=== PATIENT | female | born 1970 | race Caucasian/White ===

== ENCOUNTER 2016-08-31 21:26 | Emergency (ER) | payer OTHER ==
--- NOTE | 2016-08-31 23:38 | ED CLINICAL REPORT ---
Clinical Report - Physicians/Mid Levels [facility] [address] [place] [address] 08/31/2016 21:29 [id number] Time Seen: 21:56; initial patient contact. Arrived- By private vehicle. Historian- patient. HISTORY OF PRESENT ILLNESS Chief Complaint: Injury to right and left leg and Chief Complaint- Edema. The injury happened about 1 week ago. Occurred at home. Injury secondary to other mechansim (none). Patient is not experiencing pain. Patient denies injury to the head or neck. REVIEW OF SYSTEMS The patient has had swelling. No tingling, weakness, numbness, calf pain or chest pain. No difficulty breathing. She has had pedal edema but no pain on weight bearing. All systems otherwise negative, except as recorded above. PAST HISTORY ( Hypertension. Heart Murmur. ADDITIONAL SURGERIES: Abdominal surgery). Medications: Bactrim Oral. Allergies: None. SOCIAL HISTORY Never smoker. No alcohol use or drug use. ADDITIONAL NOTES The nursing notes have been reviewed. PHYSICAL EXAM Vital Signs: 08/31/2016 21:50 BP: 153/85. HR: 102. RR: 20. O2 saturation: 96%. Temp: 98.4 F. Pain level now: 0/10. Have been reviewed. Hypertensive. Tachycardic. Respiratory rate normal. Temperature normal. Oxygen saturation normal. Appearance: Alert. Oriented X3. ENT: Pharynx normal. Neck: Normal inspection. CVS: Normal heart rate and rhythm. Heart sounds normal. Respiratory: No respiratory distress. Breath sounds normal. Skin: Skin warm and dry. Normal skin color. Extremities: Right leg: mild swelling. No erythema or tenderness. Left leg: mild swelling. No erythema or tenderness. Extremities otherwise negative. Gait: Normal gait. Neuro, Vascular and Tendons: Vascular status intact. Sensation intact. Motor intact. Tendon function intact. Neuro: Oriented X 3. LABS, X-RAYS, AND EKG Chest X-ray: No acute disease. Normal lung markings present. Normal heart size. No infiltrate. Views: AP. Technique: good. The X-rays were independently viewed by me and interpreted contemporaneously by me. Prior films were not available for comparison. PROGRESS AND PROCEDURES Disposition: Discharged home in good and improved condition. Condition: good. CLINICAL IMPRESSION Bilateral pedal edema secondary to unknown cause. Uncontrolled essential hypertension. INSTRUCTIONS Follow a low salt diet. Your Current Medications: CONTINUE TAKING THE FOLLOWING MEDICATIONS: Bactrim Oral. Prescription Medications: Spironolactone 25 mg: take 1 tablet orally every 12 hours. Dispense thirty (30). No refills. Follow-up: Follow up with your doctor in about three days. Call for an appointment. Screening today revealed the patient's blood pressure to be in the hypertensive range. The patient should follow up with a primary care provider for blood pressure management. (Electronically signed by Deacon Walters Dr. 09/01/2016 5:29)
--- NOTE | 2016-08-31 23:38 | ED ORDER SUMMARY ---
..... Patient: JUANITA CARR OrderSheet [facility] VisitID: [id number] [place] [address] 45y, F Registration Date/Time: 08/31/2016 ORDER SHEET Weight: 181.4 kg (stated) Allergies: None GENERAL ORDERS: Chest 1V Urgent (22:08/31/2016 Pilar Najera) (Ack 22:40 CHagerty ER Electrophonic Engineer) (23:57 RMarsden R.N.) CBC w Diff Urgent (22:08/31/2016 Pilar Najera) (Ack 22:40 Madelineerty ER Electrophonic Engineer) (Collected 22:47 RMarsden R.N.) (23:30 CFalkner R.N.) CMP Urgent (:08/31/2016 Pilar Najera) (Ack 22:40 Madelineerty ER Electrophonic Engineer) (Collected 22:47 RMarsden R.N.) (23:30 CFalkner R.N.) UA-Culture if indicated Urgent (22:08/31/2016 Pilar Najera) (Ack 22:40 Carlos Alberto ER Electrophonic Engineer) (Cancelled: Other23:57 RMarsden R.N.) BNP Urgent (:08/31/2016 Pilar Najera) (Ack 22:40 Madelineerty ER Electrophonic Engineer) (Collected 22:47 RMarsden R.N.) (23:30 CFalkner R.N.) D-Dimer Urgent (22:08/31/2016 Pilar Najera) (Ack 22:40 Madelineerty ER Electrophonic Engineer) (Collected 22:47 RMarsden R.N.) (23:30 CFalkner R.N.) Urine Urgent (:08/31/2016 Pilar Najera) (Ack 22:40 Carlos Alberto ER Electrophonic Engineer) (Cancelled: Other23:57 RMarsden R.N.) MEDICATION ORDERS: IV FLUIDS: IV Saline Lock (22:08/31/2016 Pilar Najera) (22:47 RMarsden R.N.) ORDER SHEET NOTES: [Electronically signed by Lin Thomas R.N. (09/01/2016)] [Electronically signed by Deacon Walters Dr. (05:29 09/01/2016)] [Electronically locked/signed by Lin Thomas R.N. (09/01/2016)]
--- NOTE | 2016-08-31 23:38 | ED ORDER SUMMARY ---
..... Patient: JUANITA CARR OrderSheet [facility] VisitID: [id number] [place] [address] 45y, F Registration Date/Time: 08/31/2016 ORDER SHEET Weight: 181.4 kg (stated) Allergies: None GENERAL ORDERS: Chest 1V Urgent (22:08/31/2016 Pilar Najera) (Ack 22:40 CHagerty ER Chair Finisher) (23:57 RMarsden R.N.) CBC w Diff Urgent (22:08/31/2016 Pilar Najera) (Ack 22:40 Madelineerty ER Chair Finisher) (Collected 22:47 RMarsden R.N.) (23:30 CFalkner R.N.) CMP Urgent (:08/31/2016 Pilar Najera) (Ack 22:40 Madelineerty ER Chair Finisher) (Collected 22:47 RMarsden R.N.) (23:30 CFalkner R.N.) UA-Culture if indicated Urgent (22:08/31/2016 Pilar Najera) (Ack 22:40 Carlos Alberto ER Chair Finisher) (Cancelled: Other23:57 RMarsden R.N.) BNP Urgent (:08/31/2016 Pilar Najera) (Ack 22:40 Madelineerty ER Chair Finisher) (Collected 22:47 RMarsden R.N.) (23:30 CFalkner R.N.) D-Dimer Urgent (22:08/31/2016 Pilar Najera) (Ack 22:40 Madelineerty ER Chair Finisher) (Collected 22:47 RMarsden R.N.) (23:30 CFalkner R.N.) Urine Urgent (:08/31/2016 Pilar Najera) (Ack 22:40 Carlos Alberto ER Chair Finisher) (Cancelled: Other23:57 RMarsden R.N.) MEDICATION ORDERS: IV FLUIDS: IV Saline Lock (22:08/31/2016 Pilar Najera) (22:47 RMarsden R.N.) ORDER SHEET NOTES: [Electronically signed by Lin Thomas R.N. (09/01/2016)] [Electronically signed by Deacon Walters Dr. (05:29 09/01/2016)] [Electronically locked/signed by Lin Thomas R.N. (09/01/2016)]
--- NOTE | 2016-08-31 23:38 | ED NURSING NOTES ---
Clinical Report - [facility] [address] [place] [address] 08/31/2016 21:29 Patient: JUANITA CARR TRIAGE Triage time 21:50. Acuity: LEVEL 4. Chief Complaint: ("water retention"). 22:00 08/31/16. Alert. No acute distress. RIDDHI COMA SCORE: Riddhi Coma Scale: 15- eyes open spontaneously (4); best verbal response- oriented x 4 (5); best motor response- obeys commands (6). --22:00 Lin Thomas R.N. 21:50 08/31/16. BP: 153/85 taken on the left arm, while sitting. HR: 102. RR: 20. O2 saturation: 96%. Temp: 98.4 F. Pain level now: 0/10. Additional comments: patient states she has no pain, just "discomfort." . --22:00 Lin Thomas R.N. Weight: 181.4 kg stated. Height/Length: 67 inches Per Patient. BMI: 62.7. --21:54 Lin Thomas R.N. Medications Bactrim Oral. --21:53 Lin Thomas R.N. Allergies None. --21:53 Lin Thomas R.N. History Arrived by private vehicle. Historian: patient. Primary physician (Tay [place]). Onset. (a week ago). ( Patient states "I noticed my legs were swelling a week ago. I think I'm diabetic. I tried taking otc water pills but they didnt help."). ( tinnitus). 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 PAST MEDICAL HX: Immunizations: up-to-date. Denies current . SOCIAL HX: Never smoker. No alcohol use or drug use. FALL RISK ASSESSMENT: Fall risk assessment completed. No fall risk identified. NUTRITIONAL RISK ASSESSMENT: The nutritional risk assessment revealed no deficiencies. FUNCTIONAL ASSESSMENT: Functional assessment: no impairments noted. LEARNING NEEDS ASSESSMENT: The learning needs assessment revealed no barriers. SKIN INTEGRITY ASSESSMENT: Skin integrity risk assessment completed. No skin integrity risk identified. --22:00 Lin Thomas R.N. PROBLEMS: Hypertension. Heart Murmur. --21:54 Lin Thomas R.N. ADDITIONAL SURGERIES: Abdominal surgery. --21:54 Lin Thomas R.N. Interventions ID band on patient. To treatment room. --22:00 Lin Thomas R.N. PHYSICAL ASSESSMENT 22:02 08/31/16. Ambulatory to room. GENERAL / NEURO / PSYCH: Alert. Oriented X 4. Appears in no acute distress. HEENT: Mucous membranes are pink. RESPIRATORY: Respirations not labored. Breath sounds within normal limits. CVS: Capillary refill less than 2 seconds. Pulses within normal limits. GI / : Abdomen soft and nontender and normal bowel sounds. SKIN: Skin is warm and dry. Swelling with tenderness, heat and erythema to right leg, right ankle, right foot, left leg, left ankle and left foot. ( +2 edema, both legs.). --22:02 Lin Thomas R.N. NURSING PROGRESS NOTES 22:03 08/31/16. Pulse oximeter and NIBP monitor placed on patient. Head of bed elevated. Two patient identifiers checked. Call light placed in reach. Side rails up x 1. Bed placed in lowest position. Brakes of bed on. Patient ready for evaluation- chart flagged and notification provided. --22:03 Lin Thomas R.N. 22:42 08/31/2016 Site #1 started via IV in the right antecubital space with an 20g angiocath; one attempt. Blood drawn: rainbow set. Labeled in the presence of the patient and sent to the lab. Saline lock flushed with 10 mL saline. --22:47 Lin Thomas R.N. 22:48 08/31/16. BP: 140/85 taken on the left arm, while sitting. HR: 104. RR: 20. O2 saturation: 96%. Temp: deferred. Pain level now: 0/10. --22:48 Lin Thomas R.N. DISPOSITION / DISCHARGE No learning barriers present. Discharge instructions provided and reviewed with the patient. Reviewed medication(s). Treatments reviewed. Reviewed referrals. Patient verbalized understanding. Written instructions provided in Dominican. The patient was discharged home and accompanied by family. She left the Emergency Department ambulatory and via private vehicle. Family member driving. --23:55 Lin Thomas R.N. 23:53 08/31/16. BP: 137/94 taken on the left arm, while sitting. HR: 90. RR: 18. O2 saturation: 97% on room air. Temp: deferred. Pain level now: 0/10. --23:55 Lin Thomas R.N. Locked/Released at 09/01/2016 1:07 by Lin Thomas R.N.
--- NOTE | 2016-08-31 23:38 | ED NURSING NOTES ---
Clinical Report - Nurses [facility] [address] [place] [address] 08/31/2016 21:29 Patient: JUANITA CARR TRIAGE Triage time 21:50. Acuity: LEVEL 4. Chief Complaint: ("water retention"). 22:00 08/31/16. Alert. No acute distress. RIDDHI COMA SCORE: Riddhi Coma Scale: 15- eyes open spontaneously (4); best verbal response- oriented x 4 (5); best motor response- obeys commands (6). --22:00 Lin Thomas R.N. 21:50 08/31/16. BP: 153/85 taken on the left arm, while sitting. HR: 102. RR: 20. O2 saturation: 96%. Temp: 98.4 F. Pain level now: 0/10. Additional comments: patient states she has no pain, just "discomfort." . --22:00 Lin Thomas R.N. Weight: 181.4 kg stated. Height/Length: 67 inches Per Patient. BMI: 62.7. --21:54 Lin Thomas R.N. Medications Bactrim Oral. --21:53 Lin Thomas R.N. Allergies None. --21:53 Lin Thomas R.N. History Arrived by private vehicle. Historian: patient. Primary physician (Tay [place]). Onset. (a week ago). ( Patient states "I noticed my legs were swelling a week ago. I think I'm diabetic. I tried taking otc water pills but they didnt help."). ( tinnitus). 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 PAST MEDICAL HX: Immunizations: up-to-date. Denies current . SOCIAL HX: Never smoker. No alcohol use or drug use. FALL RISK ASSESSMENT: Fall risk assessment completed. No fall risk identified. NUTRITIONAL RISK ASSESSMENT: The nutritional risk assessment revealed no deficiencies. FUNCTIONAL ASSESSMENT: Functional assessment: no impairments noted. LEARNING NEEDS ASSESSMENT: The learning needs assessment revealed no barriers. SKIN INTEGRITY ASSESSMENT: Skin integrity risk assessment completed. No skin integrity risk identified. --22:00 Lin Thomas R.N. PROBLEMS: Hypertension. Heart Murmur. --21:54 Lin Thomas R.N. ADDITIONAL SURGERIES: Abdominal surgery. --21:54 Lin Thomas R.N. Interventions ID band on patient. To treatment room. --22:00 Lin Thomas R.N. PHYSICAL ASSESSMENT 22:02 08/31/16. Ambulatory to room. GENERAL / NEURO / PSYCH: Alert. Oriented X 4. Appears in no acute distress. HEENT: Mucous membranes are pink. RESPIRATORY: Respirations not labored. Breath sounds within normal limits. CVS: Capillary refill less than 2 seconds. Pulses within normal limits. GI / : Abdomen soft and nontender and normal bowel sounds. SKIN: Skin is warm and dry. Swelling with tenderness, heat and erythema to right leg, right ankle, right foot, left leg, left ankle and left foot. ( +2 edema, both legs.). --22:02 Lin Thomas R.N. NURSING PROGRESS NOTES 22:03 08/31/16. Pulse oximeter and NIBP monitor placed on patient. Head of bed elevated. Two patient identifiers checked. Call light placed in reach. Side rails up x 1. Bed placed in lowest position. Brakes of bed on. Patient ready for evaluation- chart flagged and notification provided. --22:03 Lin Thomas R.N. 22:42 08/31/2016 Site #1 started via IV in the right antecubital space with an 20g angiocath; one attempt. Blood drawn: rainbow set. Labeled in the presence of the patient and sent to the lab. Saline lock flushed with 10 mL saline. --22:47 Lin Thomas R.N. 22:48 08/31/16. BP: 140/85 taken on the left arm, while sitting. HR: 104. RR: 20. O2 saturation: 96%. Temp: deferred. Pain level now: 0/10. --22:48 Lin Thomas R.N. DISPOSITION / DISCHARGE No learning barriers present. Discharge instructions provided and reviewed with the patient. Reviewed medication(s). Treatments reviewed. Reviewed referrals. Patient verbalized understanding. Written instructions provided in Grenadian. The patient was discharged home and accompanied by family. She left the Emergency Department ambulatory and via private vehicle. Family member driving. --23:55 Lin Thomas R.N. 23:53 08/31/16. BP: 137/94 taken on the left arm, while sitting. HR: 90. RR: 18. O2 saturation: 97% on room air. Temp: deferred. Pain level now: 0/10. --23:55 Lin Thomas R.N. Locked/Released at 09/01/2016 1:07 by Lin Thomas R.N.
--- NOTE | 2016-08-31 23:38 | ED CLINICAL REPORT ---
Clinical Report - Physicians/Mid Levels [facility] [address] [place] [address] 08/31/2016 21:29 [id number] Time Seen: 21:56; initial patient contact. Arrived- By private vehicle. Historian- patient. HISTORY OF PRESENT ILLNESS Chief Complaint: Injury to right and left leg and Chief Complaint- Edema. The injury happened about 1 week ago. Occurred at home. Injury secondary to other mechansim (none). Patient is not experiencing pain. Patient denies injury to the head or neck. REVIEW OF SYSTEMS The patient has had swelling. No tingling, weakness, numbness, calf pain or chest pain. No difficulty breathing. She has had pedal edema but no pain on weight bearing. All systems otherwise negative, except as recorded above. PAST HISTORY ( Hypertension. Heart Murmur. ADDITIONAL SURGERIES: Abdominal surgery). Medications: Bactrim Oral. Allergies: None. SOCIAL HISTORY Never smoker. No alcohol use or drug use. ADDITIONAL NOTES The nursing notes have been reviewed. PHYSICAL EXAM Vital Signs: 08/31/2016 21:50 BP: 153/85. HR: 102. RR: 20. O2 saturation: 96%. Temp: 98.4 F. Pain level now: 0/10. Have been reviewed. Hypertensive. Tachycardic. Respiratory rate normal. Temperature normal. Oxygen saturation normal. Appearance: Alert. Oriented X3. ENT: Pharynx normal. Neck: Normal inspection. CVS: Normal heart rate and rhythm. Heart sounds normal. Respiratory: No respiratory distress. Breath sounds normal. Skin: Skin warm and dry. Normal skin color. Extremities: Right leg: mild swelling. No erythema or tenderness. Left leg: mild swelling. No erythema or tenderness. Extremities otherwise negative. Gait: Normal gait. Neuro, Vascular and Tendons: Vascular status intact. Sensation intact. Motor intact. Tendon function intact. Neuro: Oriented X 3. LABS, X-RAYS, AND EKG Chest X-ray: No acute disease. Normal lung markings present. Normal heart size. No infiltrate. Views: AP. Technique: good. The X-rays were independently viewed by me and interpreted contemporaneously by me. Prior films were not available for comparison. PROGRESS AND PROCEDURES Disposition: Discharged home in good and improved condition. Condition: good. CLINICAL IMPRESSION Bilateral pedal edema secondary to unknown cause. Uncontrolled essential hypertension. INSTRUCTIONS Follow a low salt diet. Your Current Medications: CONTINUE TAKING THE FOLLOWING MEDICATIONS: Bactrim Oral. Prescription Medications: Spironolactone 25 mg: take 1 tablet orally every 12 hours. Dispense thirty (30). No refills. Follow-up: Follow up with your doctor in about three days. Call for an appointment. Screening today revealed the patient's blood pressure to be in the hypertensive range. The patient should follow up with a primary care provider for blood pressure management. (Electronically signed by Deacon Walters Dr. 09/01/2016 5:29)
--- NOTE | 2016-08-31 23:52 | DIAGNOSTIC IMAGING REPORT ---
PROCEDURE: XR CHEST 1 VIEW INDICATION: EDEMA TECHNIQUE: Portable AP view (2340 hours). COMPARISON: None. FINDINGS: Allowing for body habitus, lung are clear. Borderline cardiomegaly and vascular congestion. Mediastinum is normal. Thorax is normal. IMPRESSION: 1. Borderline cardiomegaly and vascular congestion. While this might be normal, consider occult/mild congestive failure.
--- NOTE | 2016-09-01 05:29 | ED MED RECONCILIATION SUMMARY ---
Patient: JUANITA CARR Medication Reconciliation Report [facility] VisitID: [id number] [address] [place] [address] 45y, F Registration Date/Time: 08/31/2016 Weight: 181.4 kg Height/Length: 67 in. BMI: 62.7 ALLERGIES: None The patient's Home Medications are listed below: CONTINUE TAKING THE FOLLOWING MEDICATIONS: Bactrim Oral The source(s) of the original Home Medication information: Not obtained. The following Medications were given to the patient in the Emergency Department: None. The following Medications were prescribed to the patient: Spironolactone 25 mg: take 1 tablet orally every 12 hours. Dispense thirty (30). No refills. -- Deacon Walters Dr.
--- NOTE | 2016-09-01 05:29 | ED MAR SUMMARY ---
..... Medication Administration Record [facility] [address], [place] [id number] Patient: JUANITA CARR Visit ID: [id number] 45y, F Weight: 181.4 kg Height/Length: 67 in BMI: 62.7 ALLERGIES: None
--- NOTE | 2016-09-01 05:29 | ED MED RECONCILIATION SUMMARY ---
Patient: JUANITA CARR Medication Reconciliation Report [facility] VisitID: [id number] [address] [place] [address] 45y, F Registration Date/Time: 08/31/2016 Weight: 181.4 kg Height/Length: 67 in. BMI: 62.7 ALLERGIES: None The patient's Home Medications are listed below: CONTINUE TAKING THE FOLLOWING MEDICATIONS: Bactrim Oral The source(s) of the original Home Medication information: Not obtained. The following Medications were given to the patient in the Emergency Department: None. The following Medications were prescribed to the patient: Spironolactone 25 mg: take 1 tablet orally every 12 hours. Dispense thirty (30). No refills. -- Deacon Walters Dr.
--- NOTE | 2016-09-01 05:29 | ED DISCHARGE INSTRUCTIONS ---
Patient: JUANITA CARR General Instructions [facility] VisitID: [id number] [place] [address] 45y, F Registration Date/Time: 08/31/2016 Bilateral pedal edema secondary to unknown cause. Uncontrolled essential hypertension. INSTRUCTIONS Follow a low salt diet. Your Current Medications: CONTINUE TAKING THE FOLLOWING MEDICATIONS: Bactrim Oral. Prescription Medications: Spironolactone 25 mg: take 1 tablet orally every 12 hours. Dispense thirty (30). No refills. Follow-up: Follow up with your doctor in about three days. Call for an appointment. Screening today revealed the patient's blood pressure to be in the hypertensive range. The patient should follow up with a primary care provider for blood pressure management. ADDITIONAL INFORMATION Leg Swelling [Bilateral] Swelling of the feet, ankles and legs is called "Edema." It is due to excess fluid collecting in the tissues. Because of gravity, excess fluid in the body settles in the lowest part. This is why the legs and feet are most affected. Some of the causes for edema include: Disease of the heart (congestive heart failure or "CHF") Prolonged standing or sitting (with the legs in the down position) Infection of the feet or legs Venous Insufficiency (congestion of blood in the veins of the legs) Varicose veins (dilated veins of the lower leg) Garters, or clothing that constricts your legs. (These will cause venous congestion by restricting blood flow.) Some medicines (hormones such as control pills; some blood pressure medicines, such as calcium channel blockers; steroids; some antidepressants such as MAO inhibitors and tricyclics.) Menstrual periods with fluid retention Renal insufficiency (a form of kidney disease) Liver failure (Some swelling is normal, but a sudden increase in leg swelling or weight gain can be a sign of a dangerous complication of ). Medical treatment will depend on the cause of your swelling. Diuretics (water pills) may be prescribed to remove excess fluid. Home Care: Do not wear garments that constrict your legs (such as garters). Elevate your legs while lying or sitting. If infection, injury or recent surgery is the cause for your swelling, stay off your legs as much as possible until symptoms improve. If your doctor says that your leg swelling is caused by venous insufficiency or varicose veins, do not sit or software development test engineer one place for long periods of time. Take breaks and walk about every few hours. Brisk walking is a good exercise and helps circulate the congested blood from your leg. Talk to your doctor about the use of support stockings to prevent daytime leg swelling. If your doctor says that heart disease is the cause of your leg swelling, follow a low-salt diet to prevent excess fluid retention. Follow Up with your doctor or as advised by our staff. Get Prompt Medical Attention if any of the following occur: New or worsening shortness of breath or chest pain Increasing swelling in both legs or ankles Swelling of the abdomen Redness, warmth or swelling in one leg Fever of 100.4F (38C) or higher, or as directed by your healthcare provider Yellow color to the skin or eyes Rapid, unexplained weight gain High Blood Pressure -- New (Begin Tx) Your blood pressure was high enough today to start treatment with medicines. The cause of hypertension is unknown in most cases, but can be controlled with lifestyle changes and/or medicines. Hypertension may cause headache, dizziness, blurred vision, rushing sound in your ears, chest pain or shortness of breath. Sometimes it causes no symptoms at all. However, untreated hypertension increases the risk of heart attack, also known as acute myocardial infarction, or AMI, and stroke. It is a serious health risk and should not be ignored. A normal blood pressure is 120/80 or less. The first (top) number is the "systolic" pressure. The second (bottom) number is the "diastolic" pressure. Hypertension exists when either the top number is 140 or higher, OR the bottom number is 90 or higher on repeated measurements. Home Care: All patients with hypertension should do the following to lower their pressure. If you are on medicines, then these methods may reduce or eliminate your need for medicine in the future. Begin a weight loss program if you are overweight. Reduce your salt intake. Avoid high salt foods (olives, pickles, smoked meats, salted potato chips, etc.). Do not add salt to your food at the table. Use only small amounts of salt when cooking. Begin an exercise program. Discuss with your doctor what type of exercise program would be best for you. It doesn't have to be difficult. Even brisk walking for 20 minutes three times a week is a good form of exercise. Avoid medicines which contain heart stimulants. This includes many cold and sinus decongestant pills and sprays as well as diet pills. Check the warnings about hypertension on the label. Stimulants such as amphetamine or cocaine could be lethal for someone with hypertension. Never take these. Limit your caffeine intake or switch to caffeine-free products. Stop smoking. If you are a long-time smoker, this can be hard. Enroll in a stop-smoking program to improve your chance of success. Talk to your physician about ways to improve your chance of success. Learning how to handle stress better is an important part of any program to lower blood pressure. Learn about relaxation methods such as meditation, yoga, or biofeedback. If medicines were prescribed, take them exactly as directed. Missing doses may cause your blood pressure to get out of control. Consider buying an automatic blood pressure machine (available at many pharmacies). Use this to monitor your blood pressure and report to your doctor. Follow Up: Because a new blood pressure medicine was started today, it is important that you have your blood pressure rechecked to be sure you are responding well and that there are no serious side effects. Unless told otherwise, follow-up with your doctor or this facility within the next THREE DAYS. Get Prompt Medical Attention if any of the following occur: Chest pain or shortness of breath Severe headache Throbbing or rushing sound in the ears Nosebleed Sudden severe abdominal pain Extreme drowsiness, confusion or fainting Dizziness or vertigo (dizziness with spinning sensation) Weakness of an arm or leg or one side of the face Difficulty with speech or vision Low-Salt Diet (2 Grams/Day) This diet eliminates foods that are high in salt and restricts the amount of salt that you cook with. It is most often used for patients with high blood pressure, edema (fluid retention), kidney, liver, and heart disease. Table salt contains the mineral sodium. The body needs sodium to work normally. But too much sodium can make your health problems worse. Your healthcare provider is recommending a low-salt (also called low-sodium) diet for you. Your total daily allowance of salt (sodium) is 2 grams. This equals 2,000 milligrams (mg). It is less than 1 teaspoon of table salt. This means you can have only about 700 mg of sodium at each meal. When you cook, limit the salt you use. And if you can avoid using salt, even better. Do not add salt at the table. So, throw away the saltshaker! When shopping, read the package labels. Salt is often called sodium on the label. Choose foods that are Salt-Free, Low Salt, or Very Low Salt. Note that foods with Reduced Salt may notlower your salt intake enough. Beverages OK: Tea, coffee, carbonated beverages, juices AVOID: Flavored international coffees, electrolyte replacement drinks, sports beverages Bread & Cereals OK: All regular bread, rolls, cereals, cakes; low-salt crackers, matzoh crackers AVOID: Salted crackers, pretzels, popcorn; lao toast, pancakes, muffins Fruits & Desserts OK: Ice cream, frozen yogurt, juice bars, gelatin (Jell-O), cookies and pies, sugar, honey, jelly, hard candy AVOID: Most pies, cakes and cookies prepared or processed with salt, instant pudding Meats OK: All fresh meat, fish, poultry, low-salt tuna AVOID: Smoked, pickled, brine-cured, or salted meats or fish. Thisincludes thayer, chipped beef, corned beef, hot dogs, luncheon meats, ham, kosher meats, salt pork, sausage, canned tuna, salted codfish, smokedsalmon, crocker, sardines, or anchovies. Dairy OK: Milk, chocolate milk, hot chocolate mix; eggs, Low Salt cheeses, yogurt, egg substitute AVOID: Processed cheese, cheese spreads, Roquefort, Camembert, and cottage cheese, buttermilk, instant breakfast drink Beans, Potatoes & Pasta OK: Dry beans, split peas, lentils, potatoes, rice, macaroni, noodles, spaghetti without added salt AVOID: Potato chips, tortilla chips, and similar products Soups OK: Low-salt soups and broths made with allowed foods AVOID: Bouillon cubes, soups with smoked or salted meats, regular soup and broth Vegetables OK: Most are okay; low-salt tomato and vegetable juices AVOID: Sauerkraut and other brine-soaked vegetables, pickles and other pickled vegetables, tomato juice, olives Seasoning & Spices OK: Most seasonings are okay. Good substitutes for salt include: fresh herb blends, Tabasco, lemon, garlic, fletcher, vinegar, dry mustard, parsley, cilantro, horseradish, tomato paste, regular margarine, mayonnaise, butter, cream cheese, vegetable oil, cream, low-salt salad dressing and gravy AVOID: Regular ketchup, relishes, pickles, soy sauce, teriyaki sauce, Worcestershire sauce, BBQ sauce, tartar sauce, meat tenderizer, chili sauce, regular gravy, regular salad dressing You have been given the following additional information: Peripheral Edema, Bilateral Hypertension, New (Begin Treatment) Diet, Low Salt (2Gm) (Electronically signed by Deacon Walters Dr. 09/01/2016 5:29)
--- NOTE | 2016-09-01 05:29 | ED MAR SUMMARY ---
..... Medication Administration Record [facility] [address] [place], [place] [id number] Patient: JUANITA CARR Visit ID: [id number] 45y, F Weight: 181.4 kg Height/Length: 67 in BMI: 62.7 ALLERGIES: None
== END 2016-08-31 23:56 | disposition home or self-care (01) ==
LOC: ED SRH 21:26
DX: R60.0 Localized edema (principal); I10 Essential (primary) hypertension; Z79.2 Long term (current) use of antibiotics
CPT/HCPCS: 90100; 91320; 91556; 95059